=== PATIENT | male | born 1960 | race Caucasian/White ===

== ENCOUNTER 2019-10-19 18:31 | Emergency (ER) | payer SELFPAY ==
[~2019-10-19] VITALS: Ht 162.6 cm; Wt 60.0 kg
[2019-10-19] MEDS ORDERED: TETANUS, DIPHTHERIA, PERTUSSIS VAC/PF 0.5ML (>7YR OLD) IM ONE (20:45)
[2019-10-19] MEDS ORDERED: LIDOCAINE HCL/PF 1% 10 MG/ML 5ML VIAL IJ ONE (20:45)
[2019-10-19] MEDS ORDERED: BACITRACIN ZINC OINT UDPKT TOP ONE (20:45)
[2019-10-19] MEDS ORDERED: IBUPROFEN 600MG TABLET PO ONE (20:45)
[2019-10-19 23:19] VITALS: BP 138/94
== END 2019-10-19 23:27 | disposition home or self-care (01) ==
LOC: ER 18:31
DX: S01.21XA Laceration without foreign body of nose, initial encounter (principal); W22.8XXA Striking against or struck by other objects, initial encounter; Y93.89 Activity, other specified; Y92.89 Other specified places as the place of occurrence of the external cause; Y99.8 Other external cause status
CPT/HCPCS: 70160; 99283; J3490

== ENCOUNTER 2023-01-13 08:49 | Emergency (ER) | payer OTHER ==
[~2023-01-13] VITALS: Ht 175.3 cm; Wt 82.0 kg
[2023-01-13 08:58] VITALS: O2SAT 95
[2023-01-13] MEDS ORDERED: FAMOTIDINE 20MG/2ML VIAL IV ONE (10:30)
[2023-01-13] MEDS ORDERED: MAGNESIUM/ALUMINUM HYDROXIDE/SIMETHICONE 30ML UDC PO ONE (10:30)
[2023-01-13 10:31] LABS: BASOPHILS % 0.2 % (0.0-2.0); EOSINOPHILS % 0.2 % (0.0-5.0); HEMATOCRIT. 45.5 % (42.0-52.0); HEMOGLOBIN. 16.1 g/dL (14.0-18.0); LYMPHOCYTES % 18.1 % (20.0-50.0); MEAN CORPUSCULAR HEMOGLOBIN 33.8 pg (28.0-32.0); MEAN CORPUSCULAR VOLUME 95.6 fL (80.0-94.0); MEAN PLATELET VOLUME 9.7 fl (7.4-10.4); MONOCYTES % 5.2 % (2.0-8.0); NEUTROPHILS % 76.3 % (40.0-76.0); PLATELET 60 x1000/uL (130-400); RED BLOOD CELL COUNT 4.76 mill/uL (4.7-6.1); RED CELL DISTRIBUTION WIDTH 13.4 % (11.6-14.6)
[2023-01-13 10:39] LABS: CHLORIDE 108 mEq/L (98-107)
[2023-01-13 10:50] LABS: ETHANOL BLOOD 339 mg/dL (-10)
[2023-01-13 14:30] VITALS: BP 123/79; PULSE 75; RESP 18; TEMP 98.8
== END 2023-01-13 14:31 | disposition home or self-care (01) ==
LOC: ER 09:25
DX: F10.129 Alcohol abuse with intoxication, unspecified (principal); R07.89 Other chest pain; Y90.8 Blood alcohol level of 240 mg/100 ml or more
CPT/HCPCS: 80053; 80320; 83880; 83690; 85025; 84484; 36415; 71045; 93005; 96374; 99285; J3490; Z7610 ×2; G0480

== ENCOUNTER 2024-03-15 22:24 | Emergency (ER) | payer MEDICAID, OTHER ==
[~2024-03-15] VITALS: Ht 162.6 cm; Wt 90.0 kg
[2024-03-15 22:30] VITALS: BP 135/102; PULSE 102; RESP 20; TEMP 98.3; O2SAT 100
[2024-03-15 23:05] LABS: HEMATOCRIT 47.4 % (42.0-52.0); HEMOGLOBIN 16.4 g/dL (14.0-18.0); MEAN CORPUSCULAR HEMOGLOBIN 34.7 pg (28.0-32.0); MEAN CORPUSCULAR HGB CONC 34.7 g/dL (31.0-37.0); MEAN CORPUSCULAR VOLUME 100.1 fL (80.0-94.0); PLATELET 75 x1000/uL (130-400); RED BLOOD CELL COUNT 4.73 mill/uL (4.7-6.1); RED CELL DISTRIBUTION WIDTH 13.6 % (11.6-14.6); WHITE BLOOD COUNT 6.6 x1000/uL (4.5-11.0)
[2024-03-15 23:12] LABS: CHLORIDE 106 mEq/L (98-107); SODIUM 139 mEq/L (136-145)
[2024-03-15 23:13] LABS: CALCIUM 8.7 mg/dL (8.7-10.4); CARBON DIOXIDE 25 mEq/L (21-32)
[2024-03-15 23:18] LABS: CREATININE 0.8 mg/dL (0.6-1.3); GLUCOSE 160 mg/dL (70-105); UREA NITROGEN BLOOD 6 mg/dL (9-23)
[2024-03-15 23:28] LABS: ETHANOL BLOOD 385 mg/dL (<10)
== END 2024-03-15 23:45 | disposition left against medical advice (07) ==
LOC: ER 22:24
DX: F10.129 Alcohol abuse with intoxication, unspecified (principal); Z53.21 Procedure and treatment not carried out due to patient leaving prior to being seen by health care provider; Y90.9 Presence of alcohol in blood, level not specified
CPT/HCPCS: 36415; 80048; 80320; 85027; 93005; G0480

== ENCOUNTER 2024-05-10 15:05 | Emergency (ER) | payer MEDICAID ==
[~2024-05-10] VITALS: Ht 162.6 cm; Wt 63.0 kg
[2024-05-10 15:12] VITALS: O2SAT 96
[2024-05-10 15:58] LABS: BASOPHILS % 0.9 % (0.0-2.0); DIFFERENTIAL COMMENT 0; HEMATOCRIT. 46.3 % (42.0-52.0); HEMOGLOBIN. 16.2 g/dL (14.0-18.0); LYMPHOCYTES % 36.8 % (20.0-50.0); MEAN CORPUSCULAR HEMOGLOBIN 35.6 pg (28.0-32.0); MEAN CORPUSCULAR VOLUME 101.9 fL (80.0-94.0); MEAN PLATELET VOLUME 9.1 fl (7.4-10.4); MONOCYTES % 8.6 % (2.0-8.0); NEUTROPHILS % 50.7 % (40.0-76.0); PLATELET 80 x1000/uL (130-400); RED BLOOD CELL COUNT 4.54 mill/uL (4.7-6.1); RED CELL DISTRIBUTION WIDTH 14.4 % (11.6-14.6); WHITE BLOOD COUNT 3.4 x1000/uL (4.5-11.0)
[2024-05-10 16:04] LABS: CHLORIDE 107 mEq/L (98-107); POTASSIUM 3.3 mEq/L (3.5-5.1); SODIUM 143 mEq/L (136-145)
[2024-05-10 16:05] LABS: CALCIUM 8.5 mg/dL (8.7-10.4); CARBON DIOXIDE 27 mEq/L (21-32)
[2024-05-10 16:10] LABS: CREATININE 0.8 mg/dL (0.6-1.3); GLUCOSE 114 mg/dL (70-105)
[2024-05-10 16:16] LABS: TROPONIN I HIGH SENSITIVITY 4 ng/L (3.0-53); UREA NITROGEN BLOOD < 5 mg/dL (9-23)
[2024-05-10] MEDS: SODIUM CHLORIDE 0.9% 1,000 ML IV ONE (16:42)
[2024-05-10] MEDS: PANTOPRAZOLE SODIUM 40 MG/VIAL IV SCH (16:42)
[2024-05-10] MEDS ORDERED: PROT40 MT (19:10)
[2024-05-10 19:45] VITALS: BP 138/86; PULSE 85; RESP 19; TEMP 36.89184; O2SAT 100
== END 2024-05-10 20:00 | disposition home or self-care (01) ==
LOC: ER 15:05
DX: R07.89 Other chest pain (principal); F10.229 Alcohol dependence with intoxication, unspecified; Z79.899 Other long term (current) drug therapy; Y90.8 Blood alcohol level of 240 mg/100 ml or more
CPT/HCPCS: 80048; 80320; 85025; 84484; 36415; 71045; 93005; 96361; 96374; 99285; J2470; J7030; G0480

== ENCOUNTER 2024-06-10 21:12 | Emergency (ER) | payer MEDICAID ==
[~2024-06-10] VITALS: Ht 157.5 cm; Wt 59.0 kg
[~2024-06-10 21:12] MED LIST: PROT40 MT
[2024-06-10 21:17] VITALS: O2SAT 98
[2024-06-10] MEDS: METOCLOPRAMIDE HCL 10MG TABLET PO ONE (22:00)
[2024-06-10] MEDS: ACETAMINOPHEN 325MG TABLET PO ONE (22:00)
[2024-06-10] MEDS ORDERED: AMOX1TAB16 MT (23:03)
[2024-06-10 23:25] VITALS: BP 148/75; PULSE 69; RESP 18; TEMP 36.55848; O2SAT 99
== END 2024-06-10 23:25 | disposition home or self-care (01) ==
LOC: ER 21:12
DX: S02.5XXA Fracture of tooth (traumatic), initial encounter for closed fracture (principal); S09.90XA Unspecified injury of head, initial encounter; F10.20 Alcohol dependence, uncomplicated; Z79.899 Other long term (current) drug therapy; Y04.0XXA Assault by unarmed brawl or fight, initial encounter; Y93.89 Activity, other specified; Y92.89 Other specified places as the place of occurrence of the external cause; Y99.8 Other external cause status
CPT/HCPCS: 99284; 70450; 70486; 72125; J8597

== ENCOUNTER 2024-12-19 03:55 | Emergency (ER) | payer MEDICAID ==
[~2024-12-19] VITALS: Ht 165.1 cm; Wt 59.3 kg
[~2024-12-19 03:55] MED LIST changes: +AMOX1TAB16 MT
[2024-12-19 04:01] VITALS: O2SAT 98
[2024-12-19 04:41] LABS: BASOPHILS % 0.5 % (0.0-2.0); EOSINOPHILS % 1.6 % (0.0-5.0); HEMATOCRIT. 47.5 % (42.0-52.0); HEMOGLOBIN. 16.3 g/dL (14.0-18.0); LYMPHOCYTES % 43.9 % (20.0-50.0); MEAN CORPUSCULAR HEMOGLOBIN 33.9 pg (28.0-32.0); MEAN CORPUSCULAR HGB CONC 34.2 g/dL (31.0-37.0); MEAN PLATELET VOLUME 8.3 fl (7.4-10.4); MONOCYTES % 9.1 % (2.0-8.0); NEUTROPHILS % 44.9 % (40.0-76.0); PLATELET 64 x1000/uL (130-400); RED CELL DISTRIBUTION WIDTH 14.5 % (11.6-14.6); WHITE BLOOD COUNT 5.2 x1000/uL (4.5-11.0)
[2024-12-19 04:47] LABS: CHLORIDE 105 mEq/L (98-107); POTASSIUM 3.4 mEq/L (3.5-5.1); SODIUM 141 mEq/L (136-145)
[2024-12-19 04:48] LABS: CALCIUM 8.6 mg/dL (8.7-10.4); CARBON DIOXIDE 23 mEq/L (21-32)
[2024-12-19 04:49] VITALS: BP 150/100; PULSE 98; RESP 18; TEMP 36.6; O2SAT 97
[2024-12-19 04:53] LABS: CREATININE 0.7 mg/dL (0.6-1.3); GLUCOSE 171 mg/dL (70-105); UREA NITROGEN BLOOD 5 mg/dL (9-23)
[2024-12-19] MEDS: ACETAMINOPHEN 325MG TABLET PO ONE (05:03)
[2024-12-19] MEDS: METOCLOPRAMIDE HCL 10MG TABLET PO ONE (05:04)
[2024-12-19 05:38] LABS: CLARITY URINE CLEAR (CLEAR); COLOR URINE YELLOW (YELLOW); GLUCOSE URINE NEGATIVE (NEGATIVE); KETONES URINE NEGATIVE (NEGATIVE); LEUKOCYTE ESTERASE URINE NEGATIVE (NEGATIVE); NITRITE URINE NEGATIVE (NEGATIVE); OCCULT BLOOD URINE NEGATIVE (NEGATIVE); PROTEIN URINE NEGATIVE (NEGATIVE); SPECIFIC GRAVITY URINE 1.005 (1.005-1.030)
== END 2024-12-19 05:50 | disposition home or self-care (01) ==
LOC: ER 03:55
DX: S09.90XA Unspecified injury of head, initial encounter (principal); Z79.899 Other long term (current) drug therapy; X58.XXXA Exposure to other specified factors, initial encounter; Y93.89 Activity, other specified; Y92.89 Other specified places as the place of occurrence of the external cause; Y99.8 Other external cause status
CPT/HCPCS: 99284; 70450; 80048; 81003; 85025; 36415; J8597